=== PATIENT | female | born 1990 | race Two or more races ===

== ENCOUNTER 2019-01-16 11:16 | Day surgery (SDC) | payer MEDICAID, OTHER ==
[2019-01-16] VITALS (7 sets, daily range): BP systolic 121–156; BP diastolic 68–87; PULSE 70–79; RESP 15–23; Ht 147.3 cm; Wt 56.9 kg
[~2019-01-16] VITALS: Ht 147.3 cm; Wt 56.9 kg
[~2019-01-16 11:16] MED LIST: PROPOFOL 200 MG INJ ONE
[2019-01-16] MEDS ORDERED: PROPOFOL 60 ML ONE (14:05)
[2019-01-16] MEDS ORDERED: LIDOCAINE 2% (SDV) 5 ML INJ ONE (14:06)
--- NOTE | 2019-01-16 14:13 | PREAC ---
Date/Time of Note Date/Time of Note DATE: 01/16/19 TIME: 14:10 Anesthesia Eval and Record Evaluation Time Pre-Procedure Interview DATE: 01/16/19 TIME: 14:10 Age 28 Sex female NPO: 8 hrs Preoperative diagnosis PROLONGED TRACHEOSTOMY Planned procedure JEJUNOSTOMY PLACEMENT Past Medical History Past Medical History: Includes Cardio: CHF Pulm: Other (TRACHEOSTOMY) Surgery & Anesthesia Issues No known issue Meds Anticoagulation: No Beta Wallace within 24 hr: No Reason Beta Wallace not given: Pt. not on B-Wallace Meds reviewed: Yes Allergies Coded Allergies: Penicillins (Unverified Allergy, Unknown, 01/02/19) Sulfa (Sulfonamide Antibiotics) (Unverified Allergy, Unknown, 01/02/19) codeine (Verified Allergy, Unknown, UNKNOWN, 01/01/19) cranberry (Verified Allergy, Unknown, UNKNOWN, 01/01/19) ketorolac (Verified Allergy, Unknown, UNKNOWN, 01/01/19) morphine (Verified Allergy, Unknown, UNKNOWN, 01/01/19) naproxen (Verified Allergy, Unknown, UNKNOWN, 01/01/19) Uncoded Allergies: SHELLFISH (Allergy, Unknown, UNKNOWN, 01/01/19) Allergies Reviewed: Yes Labs/Studies Labs Reviewed: Reviewed by anesthesiologist test: N/A Pre-procedure Exam Airway: Adequate mouth opening, Adequate thyromental dist Mallampati: Mallampati III Teeth: Normal Lung: Normal Heart: Normal ASA Physical Status ASA physical status: 3 Emergency: None Planned Anesthetic General/MAC: MAC Planned Pain Management Parenteral pain med Pre-operative Attestations Prior to commencing anesthesia and surgery, the patient was re-evaluated, there was verification of: *The patient's identity *The results of appropriate recent lab work and preoperative vital signs *The above evaluation not changing prior to induction *Anesthetic plan, risk benefits, alternative and complications discussed with patient/family; questions answered; patient/family understands, accepts and wishes to proceed. GO ROBERTS Jan 16, 2019 14:13
[2019-01-16] MEDS ORDERED: EPHEDrine SULFATE 50 MG/5 ML SYG IV PRN (14:30)
[2019-01-16] MEDS ORDERED: FENTAnyl 50 MCG/ML VIAL IV PRN (14:30)
[2019-01-16] MEDS ORDERED: hydrALAzine 20 MG INJ IV PRN (14:30)
[2019-01-16] MEDS ORDERED: MIDAZOLAM 1 MG/ML 2 ML INJ IV PRN (14:30)
[2019-01-16] MEDS ORDERED: ALBUTEROL 0.083% (NEB) 2.5 MG/3 ML AMP HHN PRN (14:30)
[2019-01-16] MEDS ORDERED: ONDANSETRON 4 MG INJ IV PRN (14:30)
[2019-01-16] MEDS ORDERED: DIPHENHYDRAMINE 50 MG INJ IV PRN (14:30)
[2019-01-16] MEDS ORDERED: LABETALOL HCL 20MG INJ IV PRN (14:30)
[2019-01-16] MEDS ORDERED: ATIVAN (14:38)
[2019-01-16] MEDS ORDERED: BALS3OIN TP (14:38)
[2019-01-16] MEDS ORDERED: SAN30GM TOP (14:38)
[2019-01-16] MEDS ORDERED: MVI (14:38)
[2019-01-16] MEDS ORDERED: LEVE750T70 PO (14:38)
[2019-01-16] MEDS ORDERED: HYDR12.58 PO (14:38)
[2019-01-16] MEDS ORDERED: METO5TAB58 PO (14:38)
[2019-01-16] MEDS ORDERED: INSULIN (14:38)
[2019-01-16] MEDS ORDERED: VALP250C3 PO (14:38)
[2019-01-16] MEDS ORDERED: CIPR500T4 PO (14:38)
[2019-01-16] MEDS ORDERED: ISOS10TA2 PO (14:38)
[2019-01-16] MEDS ORDERED: LACT1CAP57 PO (14:38)
[2019-01-16] MEDS ORDERED: CARV25TA79 PO (14:38)
[2019-01-16] MEDS ORDERED: ASCORBIC ACID PO (14:38)
--- NOTE | 2019-01-16 14:54 | HPN ---
Date/Time of Note Date/Time of Note DATE: 01/16/19 TIME: 14:54 Interval H&P Admission Note Pt. seen H&P reviewed: No system changes SAMUEL HEBERT MD Jan 16, 2019 14:54
--- NOTE | 2019-01-16 15:05 | PAC ---
Date/Time of Note Date/Time of Note DATE: 01/16/19 TIME: 15:05 Post-Anesthesia Notes Post-Anesthesia Note Last documented vital signs TEMP 98.5 BP 156/78 o2 SAT 98% Activity: WNL Respiratory function: WNL Cardiovascular function: WNL Mental status: Baseline Pain reasonably controlled: Yes Hydration appropriate: Yes Nausea/Vomiting absent: Yes GO ROBERTS Jan 16, 2019 15:05
== END 2019-01-16 15:43 | disposition home or self-care (01) ==
LOC: GIL 11:16
PROVIDERS: ATTEND Internal Medicine Gastroenterology
DX: R13.14 Dysphagia, pharyngoesophageal phase (principal); E10.9 Type 1 diabetes mellitus without complications; I11.0 Hypertensive heart disease with heart failure; I50.9 Heart failure, unspecified